=== PATIENT | male | born 1995 | race Caucasian/White ===

== ENCOUNTER 2017-03-27 05:12 | Emergency (ER) | payer BC ==
--- NOTE | ~2017-03-27 | ER ---
PATIENT'S NAME: ROXANA RUSSO [facility] AGE: 21 Y [address] ROOM: [place] [id number] LOCATION: [facility] ADMIT DATE: 03/27/2017 ER/Outpatient Report DISCHARGE DATE: FAMILY PHYSICIAN: PHYSICIAN, NO ATTENDING PHYSICIAN: Mohsen Hurd Admission date and time documented on the medical record. I saw the patient at 0525 hours. CHIEF COMPLAINT: Exposure to a bat. HISTORY OF PRESENT ILLNESS: The patient is a 21-year-old male, who woke up about 0230 hours in his room in a house where he is living. There was a bat flying around. It did land on his legs and on his arm. The patient was sleeping in top of his bed covers only wearing some boxer shorts. He did get up and did kill the bat. He does not think that the bat bit him. Talked to his father who suggested he come in to the emergency room for evaluation. The patient has no other complaints. HOME MEDICATIONS: None. ALLERGIES: NONE. SOCIAL HISTORY: Nonsmoker, nondrinker. SIGNIFICANT PAST MEDICAL HISTORY: Negative. OPERATIONS: None. REVIEW OF SYSTEMS: All systems reviewed by me are negative with exception of those discussed in the history of the present illness. PHYSICAL EXAMINATION: VITAL SIGNS: Temperature 98.7, pulse 80, respirations 18, blood pressure 141/87, O2 sat on room air is 99%. SKIN: On examination, I did do an examination of the skin from his head to toe. I saw no evidence of bite ron, red scratches, or red ron. PATIENT'S NAME: ROXANA RUSSO [facility] AGE: 21 Y [address] ROOM: [place] [address] LOCATION: [facility] ADMIT DATE: 03/27/2017 ER/Outpatient Report DISCHARGE DATE: FAMILY PHYSICIAN: PHYSICIAN, NO ATTENDING PHYSICIAN: Mohsen Hurd IMPRESSION: Exposure to bat. No evidence of being bitten by the bat. PLAN: We are contacting [facility] to get instructions on how to send the bat to them to be evaluated for rabies. I did discuss all this with the patient, he understands. MD OLAYINKA LEIJA/dulce /[id number] d: 03/27/17 0636 t: 03/27/17 1821, OUTPATIENT REPORT
== END 2017-03-27 06:55 | disposition disaster alternative care site (69) ==
LOC: GMED 05:12
DX: Z20.3 Contact with and (suspected) exposure to rabies (principal); Z23 Encounter for immunization